=== PATIENT | female | born 1990 | race Caucasian/White ===

== ENCOUNTER 2018-05-28 19:17 | Emergency (ER) | payer SELFPAY ==
[~2018-05-28 19:17] MED LIST: IBUPROFEN 600 MG TAB PO SCH; metroNIDAZOLE 500 MG TAB PO SCH
[2018-05-28 19:29] VITALS: BP 142/86
[2018-05-28] MEDS ORDERED: BACITRACIN OINTMENT 1 PACKET TP ONE (19:37)
[2018-05-28] MEDS ORDERED: IBUPROFEN 600 MG TAB PO ONE (19:37)
--- NOTE | 2018-05-28 19:37 | EDPHY ---
General Time Seen by Provider: 05/28/18 19:28 Narrative: CHIEF COMPLAINT: Sunburn, bacterial vaginosis HISTORY OF PRESENT ILLNESS: Patient presents by EMS with 2 complaints. First complaint is sun burn. This involves the shoulders, upper back and left breast. She has been walking in the sun for many days she is homeless and has no transportation and says she has no money for sunscreen. She has been wearing assured but the son still border. She says it is very painful. She has no fever or chills. No nausea or vomiting. 2nd complaint is the history of bacterial vaginosis. She says she was diagnosed last week. She had medication for this that she lost. She only took 1 pill. She still having vaginal itching. She has no bleeding or discharge. No pelvic pain. No abdominal pain. No flank pain no other associated complaints or modifying factors. TETANUS STATUS: Less than 10 years MEDICAL/SURGICAL/SOCIAL HISTORY: Bacterial vaginosis. Daily smoker. Currently homeless. No recent surgical history. REVIEW OF SYSTEMS: Ten systems reviewed and are negative unless otherwise noted in the HPI EXAMINATION General Appearance: Alert, no distress Head: normocephalic, atraumatic ENT: Pupils equal round reactive. EOM symmetric. Cardiovascular: Symmetric radial pulses 2+. Brisk cap refill the fingers of both hands. 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 Skin: Warm and dry. There is mixture of first-degree and second-degree sun hernandez of the shoulders bilaterally as well as second-degree burn of the left breast. There are no circumferential hernandez. There is no cellulitis surrounding this. No abscess. No purulence. No crepitus or necrosis. Extremities: Nontender, no pedal edema. Symmetric range of motion. MDM: 7:35 p.m. Acute on chronic sun burn to the shoulders, back and left breast. No 3rd degree burn. No circumferential hernandez. No signs of infection. We discuss wound care and avoidance of recurrence. She also has secondary complaint of diagnosis of bacterial vaginosis with loss of her medication. We will provide completion of this medication for her and refer her to [facility] for further care. She is comfortable with and appreciates this, and she is discharged in stable condition. SUPERVISION: This patient was independently evaluated without direct involvement of or examination by the attending physician. ED Precautions: Worsening pain. Erythema, edema, cyanosis, pallor, paresthesia or anesthesia. - Objective Vital Signs: Initial Vital Signs Temperature (C) 99.0 F 05/28/18 19:23 Heart Rate 64 05/28/18 19:23 Respiratory Rate 20 05/28/18 19:23 Blood Pressure 142/86 H 05/28/18 19:23 O2 Sat (%) 97 05/28/18 19:23 O2 Delivery Mode Room Air Allergies/Adverse Reactions: No Known Allergies Allergy (Unverified 05/28/18 19:22) Home Medications: Medication Instructions Recorded Ibuprofen 600 mg PO Q8 PRN #21 tablet 05/28/18 metroNIDAZOLE [Flagyl 500 mg (*)] 500 mg PO BID #14 tab 05/28/18 Medications Given: Discontinued Medications Bacitracin (Bacitracin Ointment) 1 kim TP EDNOW ONE Stop: 05/28/18 19:38 Last Admin: 05/28/18 19:44 Dose: 1 kim Ibuprofen (Motrin) 600 mg PO EDNOW ONE Stop: 05/28/18 19:38 Last Admin: 05/28/18 19:43 Dose: 600 mg Departure - Departure Disposition: Home, Routine, Self-Care Clinical Impression: Sunburn, Bacterial vaginosis Condition: Good Instructions: Ibuprofen (By mouth), Metronidazole (By mouth), Bacterial Vaginosis (ED), Sunburn (ED), Second Degree Burn (ED) Additional Instructions: 1. Thin layer bacitracin to the affected areas from the sunburn twice daily 2. Keep all areas of skin covered while out in the sun or apply sunscreen frequently 3. I have provided prescription for metronidazole for year reported history of bacterial vaginosis. You should take this to completion 4. Contact [facility] tomorrow morning for outpatient evaluation 5. Return here for signs of infection to the sunburn areas as discussed Referrals: [facility],. [Clinic] - As per Instructions Lesley Gong DO [Doctor of Osteopathy] - As per Instructions Prescriptions: Ibuprofen 600 mg PO Q8 PRN #21 tablet PRN Reason: Pain, Breakthrough metroNIDAZOLE [Flagyl 500 mg (*)] 500 mg PO BID #14 tab
== END 2018-05-28 20:03 | disposition home or self-care (01) ==
DX: L55.1 Sunburn of second degree (principal); N76.0 Acute vaginitis; B96.89 Other specified bacterial agents as the cause of diseases classified elsewhere; F17.200 Nicotine dependence, unspecified, uncomplicated